=== PATIENT | male | born 1980 | race Caucasian/White ===

== ENCOUNTER 2017-04-09 13:20 | Emergency (ER) | payer SELFPAY ==
[2017-04-09 13:23] VITALS: BP 133/88; PULSE 73; TEMP 97.9; BMI 36.5
[2017-04-09] MEDS ORDERED: HEMOQUE CONTROL SOLUTION ONE ×2 (14:18→14:20)
[2017-04-09] MEDS ORDERED: IBUPROFEN 600 MG TABLET (FP) PO ONE ×2 (14:53→15:20)
--- NOTE | 2017-04-09 14:59 | PDOC ---
History of Present Illness - History of Present Illness Initial Comments: 04/09/17 15:05 The patient is a 36 year old male, with a significant past medical history of prediabetes (supposed to be taking metformin but stopped a while ago, who presents to the emergency department with a family member who is also a patient and decided to be checked today. The patient is complaining of back pain with intermittent lightheadedness for at least 8 days. The patient states he feels he is walking on air and states it is exacerbated with walking and getting up from supine position. He reports his back pain is diffuse and exacerbated with bending and twisting. He also reports a small lump to his rectum which he has had for some time. He reports hard stools, but denies constipation or hematochezia. She denies chest pain, shortness of breath, headache and dizziness. She denies fever, chills, nausea, vomit, diarrhea and constipation. She denies dysuria, frequency, urgency and hematuria. Allergies: NKDA <Shelley Willis - Last Filed: 04/09/17 15:05> <Yelitza Hong - Last Filed: 04/09/17 16:54> - General Chief Complaint: Lightheaded Stated Complaint: DIZZY Time Seen by Provider: 04/09/17 13:29 Past History <Shelley Willis - Last Filed: 04/09/17 15:05> - Past Medical History Diabetes: Yes - Suicide/Smoking/Psychosocial Hx Smoking History: Never smoked Hx Alcohol Use: Yes Drug/Substance Use Hx: No Substance Use Type: Alcohol <Yelitza Hong - Last Filed: 04/09/17 16:54> - Past Medical History Allergies/Adverse Reactions: Allergies Allergy/AdvReac Type Severity Reaction Status Date / Time No Known Allergies Allergy Verified 04/09/17 13:21 Home Medications: Ambulatory Orders Metformin HCl [Glucophage -] 500 mg PO DAILY 04/09/17 Review of Systems - Review of Systems Able to Perform ROS?: Yes Comments:: 04/09/17 15:05 GENERAL/CONSTITUTIONAL: No fever or chills. No weakness. HEAD, EYES, EARS, NOSE AND THROAT: No change in vision. No ear pain or discharge. No sore throat. CARDIOVASCULAR:(+) lightheadedness. No chest pain or shortness of breath. RESPIRATORY: No cough, wheezing, or hemoptysis. GASTROINTESTINAL: No nausea, vomiting, diarrhea or constipation. GENITOURINARY: No dysuria, frequency, or change in urination. MUSCULOSKELETAL: (+) back pain. No joint or muscle swelling or pain. No neck pain. SKIN: No rash NEUROLOGIC: No headache, vertigo, loss of consciousness, or change in strength/ sensation. ENDOCRINE: No increased thirst. No abnormal weight change. HEMATOLOGIC/LYMPHATIC: No anemia, easy bleeding, or history of blood clots. ALLERGIC/IMMUNOLOGIC: No hives or skin allergy. <Shelley Willis - Last Filed: 04/09/17 15:05> *Physical Exam - Vital Signs Last Vital Signs Temp Pulse Resp BP Pulse Ox 97.9 F 73 18 133/88 100 04/09/17 13:21 04/09/17 13:21 04/09/17 13:21 04/09/17 13:21 04/09/17 13:21 - Physical Exam Comments: 04/09/17 15:06 GENERAL: Awake, alert, and fully oriented, in no acute distress HEAD: No signs of trauma EYES: PERRLA, EOMI, sclera anicteric, conjunctiva clear ENT: Auricles normal inspection, hearing grossly normal, nares patent, oropharynx clear without exudates. Moist mucosa NECK: Normal ROM, supple, no lymphadenopathy, JVD, or masses LUNGS: Breath sounds equal, clear to auscultation bilaterally. No wheezes, and no crackles HEART: Regular rate and rhythm, normal S1 and S2, no murmurs, rubs or gallops ABDOMEN: Soft, nontender, normoactive bowel sounds. No guarding, no rebound. No masses EXTREMITIES: Normal range of motion, no edema. No clubbing or cyanosis. No cords, erythema, or tenderness NEUROLOGICAL: (+) AAOx3. Gait normal. 5/5 MS, Cranial nerves II through XII grossly intact. Normal speech, SKIN: Warm, Dry, normal turgor, no rashes or lesions noted. RECTAL: (+) palpable non thrombosed hemorrhoid internally. NO abscess. <Shelley Willis - Last Filed: 04/09/17 15:05> - Vital Signs Last Vital Signs Temp Pulse Resp BP Pulse Ox 97.9 F 73 18 133/88 100 04/09/17 13:21 04/09/17 13:21 04/09/17 13:21 04/09/17 13:21 04/09/17 13:21 <Yelitza Hong - Last Filed: 04/09/17 16:54> ED Treatment Course - ADDITIONAL ORDERS Additional order review: Laboratory Results 04/09/17 14:24 POC Glucometer [id number] 04/09/17 14:24 POC Glucometer [id number] <Shelley Willis - Last Filed: 04/09/17 15:05> - LABORATORY CBC & Chemistry Diagram: 04/09/17 15:02 04/09/17 15:02 - ADDITIONAL ORDERS Additional order review: Laboratory Results 04/09/17 14:24 POC Glucometer [id number] 04/09/17 14:24 POC Glucometer [id number] <Yelitza Hong - Last Filed: 04/09/17 16:54> Medical Decision Making - Medical Decision Making 04/09/17 14:52 36 yo male with no here wtih /co feeling lightheaded for month. differential anemia, dehydration, electrolyte abnormality plan labs ekg reassess. treat back pain for msk pain with nsaids. 04/09/17 15:02 <Yelitza Hong - Last Filed: 04/09/17 16:54> *DC/Admit/Observation/Transfer - Attestations Scribe Attestion: 04/09/17 15:07 Documentation prepared by Shelley Willis, acting as director biomedical engineering for Yelitza Hong MD, <Shelley Willis - Last Filed: 04/09/17 15:05> <Yelitza Hong - Last Filed: 04/09/17 16:54> Diagnosis at time of Disposition: Acute hemorrhoid, Dehydration, Diabetes mellitus - Discharge Dispostion Disposition: HOME Condition at time of disposition: Stable - Patient Instructions Printed Discharge Instructions: Hemorrhoids, Complications of Type 2 Diabetes, Complications of Diabetes (Alternative Therapy) Additional Instructions: you need to resume taking your metformin as prescribed 500 mg twice daily. follow up with your doctor. return for any problems or concerns. for your hemorrhioids, you can use preparation H, and over the counter stool softner. Print Language: TURKISH
[2017-04-09 15:29] LABS: PH,URINE 5.5 (4.5-8); URINE APPEARANCE Clear; URINE BILIRUBIN Negative (NEGATIVE); URINE BLOOD Negative (NEGATIVE); URINE GLUCOSE (UA) Negative (NEGATIVE); URINE KETONE Negative (NEGATIVE); URINE LEUK ESTERASE Negative (NEGATIVE); URINE NITRITE Negative (NEGATIVE); URINE PROTEIN Negative (NEGATIVE); URINE UROBILINOGEN 0.2 (0.2-1.0)
[2017-04-09 15:37] LABS: URINE COLOR YELLOW
[2017-04-09 16:07] LABS: ALBUMIN 4.3 g/dl (3.5-5.0); ALK PHOS 74 U/L (32-92); ANION GAP 5 (8-16); BILIRUBIN,TOTAL 0.4 mg/dl (0.2-1.0); CALCIUM 9.2 mg/dl (8.4-10.2); CO2 27 mmol/L (22-28); CREATININE 0.8 mg/dl (0.6-1.3); GLUCOSE,RANDOM 129 mg/dl (74-106); SGOT/AST 23 U/L (10-42); SGPT/ALT 40 U/L (10-40); TOT PROT 7.3 g/dl (6.4-8.3)
[2017-04-09 16:23] LABS: BASOPHIL 0.1 % (0-2.0); EOSINOPHIL 1.1 % (0-4.5); MCH 27.9 pg (25.7-33.7); MCHC 33.9 g/dl (32.0-35.9); MEAN CELL VOLUME 82.2 fl (80-96); MEAN PLT VOLUME 8.1 fl (7.5-11.1); NEUTROPHILS 57.4 % (42.8-82.8); PLATELET COUNT 304 K/MM3 (134-434); RDW 12.2 % (11.9-15.9); WHITE BLOOD COUNT 9.2 K/mm3 (4.0-10.8)
== END 2017-04-09 16:45 | disposition home or self-care (01) ==
LOC: FER 13:20
DX: E11.9 Type 2 diabetes mellitus without complications (principal); K64.8 Other hemorrhoids; E86.0 Dehydration
CPT/HCPCS: 36415; 80053; 81003; 85025; 99283-25